=== PATIENT | female | born 1990 | race Two or more races ===

== ENCOUNTER 2023-10-15 20:00 | Emergency (ER) | payer OTHER ==
[~2023-10-15] VITALS: Ht 153 cm; Wt 50.0 kg
[2023-10-15 20:29] VITALS: BP 120/71; PULSE 110; RESP 18; TEMP 98.3
[2023-10-15] MEDS: ONDANSETRON HCL 4 MG TABLET PO ONE (21:07)
[2023-10-15] MEDS: LORazepam 1 MG TABLET PO ONE (21:07)
[2023-10-15] MEDS: ACETAMINOPHEN 500 MG TABLET PO ONE (21:07)
[2023-10-15] MEDS: MECLIZINE HCL 25 MG TABLET PO ONE (21:07)
[2023-10-15 21:16] LABS: BASOPHILS % (AUTO) 0.4 % (0.0-2.0); EOSINOPHILS % (AUTO) 0.1 % (1.0-6.0); HEMATOCRIT 38.4 % (36-46); HEMOGLOBIN 12.9 g/dL (12.0-16.0); LYMPHOCYTES # (AUTO) 0.7 K/uL (1.0-4.8); LYMPHOCYTES % (AUTO) 6.5 % (22.0-44.0); MEAN CORPUSCULAR HEMOGLOBIN 31.2 pg (26.0-34.0); MEAN CORPUSCULAR HGB CONC 33.5 G/dL (31.0-37.0); MEAN CORPUSCULAR VOLUME 93 fL (80-100); MONOCYTES # (AUTO) 0.5 K/uL (0.1-1.0); MONOCYTES % (AUTO) 4.3 % (2.0-9.0); NEUTROPHILS # (AUTO) 9.5 K/uL (1.8-7.7); PLATELET COUNT (AUTO) 301 K/uL (150-450); RED BLOOD CELL COUNT(AUTO) 4.13 MIL/uL (4.00-5.20); RED CELL DISTRIBUTION WIDTH 14.3 % (11.5-14.5); WHITE BLOOD COUNT (AUTO) 10.7 K/uL (4.5-11.0)
[2023-10-15 21:18] LABS: NEUTROPHILS % (AUTO) 88.7 % (40.0-70.0)
[2023-10-15 21:26] LABS: ANION GAP 6 mmol/L (8-16); CALCIUM, TOTAL 9.5 mg/dL (8.8-10.5); CARBON DIOXIDE 29 mmol/L (22-29); CHLORIDE 99 mmol/L (98-107); GLOMERULAR FILTR. RATE CALC > 60 mL/min (>60); GLUCOSE,RANDOM 89 mg/dL (70-110); POTASSIUM 3.5 mmol/L (3.5-5.1); SODIUM SERUM 134 mmol/L (136-145); UREA NITROGEN, BLOOD 12 mg/dL (7-18)
[2023-10-15 21:32] LABS: ALANINE AMINOTRANSFERASE 23 U/L (12-78); ALBUMIN 3.5 g/dL (3.4-5.0); ALKALINE PHOSPHATASE 59 U/L (46-116); ASPARTATE AMINOTRANSFERASE 23 U/L (15-37); BILIRUBIN,TOTAL 0.4 mg/dL (0.1-1.0); TOTAL PROTEIN, SERUM 7.6 g/dL (6.4-8.2)
[2023-10-15] MEDS ORDERED: ONDA-104 PO (22:13)
[2023-10-15] MEDS ORDERED: LORA-1000 PO (22:13)
[2023-10-15] MEDS ORDERED: MECL-134 PO (22:13)
== END 2023-10-15 22:51 | disposition home or self-care (01) ==
LOC: EMS 20:00
DX: R42 Dizziness and giddiness (principal); R07.89 Other chest pain; F43.20 Adjustment disorder, unspecified; J45.909 Unspecified asthma, uncomplicated
CPT/HCPCS: 99285; 71045; 80053; 84703; 85025; 36415; 93005; Q0162

== ENCOUNTER 2023-12-06 18:54 | Emergency (ER) | payer OTHER ==
[~2023-12-06] VITALS: Ht 154.9 cm; Wt 60.0 kg
[~2023-12-06 18:54] MED LIST: LORA-1000 PO; MECL-134 PO; ONDA-104 PO
[2023-12-06] MEDS: IBUPROFEN 600 MG TABLET PO ONE (22:36)
[2023-12-07 00:49] VITALS: BP 105/69; PULSE 68; RESP 14; TEMP 97.8
== END 2023-12-07 00:50 | disposition home or self-care (01) ==
LOC: EMS 19:04
DX: S93.401A Sprain of unspecified ligament of right ankle, initial encounter (principal); S90.511A Abrasion, right ankle, initial encounter; J45.909 Unspecified asthma, uncomplicated; X58.XXXA Exposure to other specified factors, initial encounter; Y93.89 Activity, other specified; Y92.89 Other specified places as the place of occurrence of the external cause; Y99.8 Other external cause status
CPT/HCPCS: 99284; 73590-TC; 73620-TC; Z7502; Z7610

== ENCOUNTER 2024-04-03 18:10 | Emergency (ER) | payer OTHER ==
[~2024-04-03] VITALS: Ht 152.4 cm; Wt 54.5 kg
[2024-04-03 18:17] VITALS: TEMP 97.5
[2024-04-03 19:06] LABS: EOSINOPHILS % (AUTO) 0.6 % (1.0-6.0); HEMATOCRIT 37.6 % (36-46); HEMOGLOBIN 12.4 g/dL (12.0-16.0); LYMPHOCYTES # (AUTO) 1.4 K/uL (1.0-4.8); LYMPHOCYTES % (AUTO) 20.1 % (22.0-44.0); MEAN CORPUSCULAR HEMOGLOBIN 30.7 pg (26.0-34.0); MEAN CORPUSCULAR VOLUME 93 fL (80-100); MONOCYTES # (AUTO) 0.4 K/uL (0.1-1.0); MONOCYTES % (AUTO) 5.8 % (2.0-9.0); NEUTROPHILS # (AUTO) 5.1 K/uL (1.8-7.7); NEUTROPHILS % (AUTO) 72.5 % (40.0-70.0); PLATELET COUNT (AUTO) 281 K/uL (150-450); RED BLOOD CELL COUNT(AUTO) 4.05 MIL/uL (4.00-5.20); RED CELL DISTRIBUTION WIDTH 14.9 % (11.5-14.5)
[2024-04-03 19:17] LABS: ANION GAP 8 mmol/L (8-16); CALCIUM, TOTAL 8.5 mg/dL (8.8-10.5); CARBON DIOXIDE 27 mmol/L (22-29); CHLORIDE 103 mmol/L (98-107); CREATININE 0.82 mg/dL (0.60-1.30); GLOMERULAR FILTR. RATE CALC > 60 mL/min (>60); GLUCOSE,RANDOM 98 mg/dL (70-110); POTASSIUM 3.8 mmol/L (3.5-5.1); SODIUM SERUM 138 mmol/L (136-145); UREA NITROGEN, BLOOD 9 mg/dL (7-18)
[2024-04-03 19:26] LABS: AMYLASE 74 U/L (25-115); HCG,QUANTITATIVE 1 mIU/mL (0-6); LIPASE 40 U/L (16-77)
[2024-04-03] MEDS: SODIUM CHLORIDE 0.9% 1,000 ML IV ONE (23:40)
[2024-04-03 23:46] LABS: ALBUMIN 3.2 g/dL (3.4-5.0); BILIRUBIN,DIRECT 0.1 mg/dL (0.00-0.20); BILIRUBIN,TOTAL 0.4 mg/dL (0.1-1.0); TOTAL PROTEIN, SERUM 7.1 g/dL (6.4-8.2)
[2024-04-04] MEDS: FAMOTIDINE 20 MG/2 ML VIAL IVP ONE (00:28)
[2024-04-04 03:23] LABS: APPEARANCE,URINE HAZY (CLEAR); BILIRUBIN,URINE NEGATIVE (NEGATIVE); COLOR,URINE LIGHT YELLOW (YELLOW); GLUCOSE, URINE (UA) NEGATIVE (NEGATIVE); KETONES,URINE NEGATIVE (NEGATIVE); LEUKOCYTE ESTERASE ,URINE LARGE (NEGATIVE); NITRATE,URINE NEGATIVE (NEGATIVE); OCCULT BLOOD,URINE NEGATIVE (NEGATIVE); PROTEIN,URINE NEGATIVE (NEGATIVE); SPECIFIC GRAVITIY, URINE 1.007 (1.003-1.030); UROBILINOGEN,URINE <=1.0 mg/dL (<=1.0)
[2024-04-04 03:34] LABS: BACTERIA,URINE None Seen /HPF (None Seen); RBC,URINE None Seen /HPF (0-2); SQUAMOUS EPITHELIAL CELL,UR Few /LPF (None Seen)
[2024-04-04 03:53] VITALS: BP 99/57; PULSE 56; RESP 16
== END 2024-04-04 05:07 | disposition home or self-care (01) ==
LOC: EMS 18:10
DX: K52.9 Noninfective gastroenteritis and colitis, unspecified (principal); R11.10 Vomiting, unspecified; E86.0 Dehydration; J45.909 Unspecified asthma, uncomplicated; Z88.8 Allergy status to other drugs, medicaments and biological substances
CPT/HCPCS: 99284; 96361; 80048; 80076; 81001; 82150; 83690; 84702; 85025; 36415; 96374; 74018; J7030; J3490